=== PATIENT | male | born 1960 | race Caucasian/White ===

== ENCOUNTER → 2019-04-06 08:06 | Outpatient (CLI) | payer BC | END | disposition home or self-care (01) | LOC: D.MRI 08:06 | PROVIDERS: ATTEND Orthopaedic Surgery | DX: S83.232A Complex tear of medial meniscus, current injury, left knee, initial encounter (principal) ==

== ENCOUNTER 2019-04-29 08:30 | Day surgery (SDC) | payer BC ==
[2019-04-28 15:08] LABS: HEMATOCRIT 42.3 % (42.0-54.0); HEMOGLOBIN 15.8 g/dL (13.5-17.5); MCH 30.7 pg (26.0-34.0); MCHC 37.4 g/dL (31.0-37.0); MCV 82.1 fL (80.0-100.0); MEAN PLATELET VOLUME 10.3 fL (7.4-10.4); PLATELET COUNT 88 10x3/uL (130-400); RBC 5.15 10x6/uL (4.20-6.10); RDW 12.9 % (11.5-14.5); WBC 6.2 10x3/uL (4.8-10.8)
[2019-04-28 17:32] LABS: PLATELET ESTIMATE DECREASED
[~2019-04-29] VITALS: Ht 193 cm; Wt 138.3 kg
[~2019-04-29 08:30] MED LIST: LISINOPRIL20 MG PO
[2019-04-29 08:57] VITALS: BP 140/80; Ht 193 cm; Wt 138.3 kg
[2019-04-29] MEDS ORDERED: HYDROCODON-ACE1 EA10 PO (12:26)
--- NOTE | 2019-04-30 15:25 | OP ---
PATIENT NAME: MELINDA ALICEA MEDICAL RECORD: [id number] :64 LOCATION:D.OPS ADMISSION DATE: SURGEON: LIBRA MARQUEZ MD DATE OF OPERATION: 04/29/2019 PREOPERATIVE DIAGNOSIS: Lateral meniscus tear. POSTOPERATIVE DIAGNOSES: Lateral meniscus tear and medial meniscus tear of the left knee. PROCEDURES: 1. Arthroscopic partial lateral meniscectomy of the left knee. 2. Arthroscopic partial medial meniscectomy of the left knee. SURGEON: Libra Marquez MD ANESTHESIA: General. INTRAOPERATIVE COMPLICATIONS: None. SUMMARY OF PATHOLOGIC FINDINGS: The patient had a small tear of the lateral meniscus just at the root; however, the root was intact. The tear did have a fragment associated with it, but no chondromalacia was noted on the medial side; however, the patient had an undersurface tear of the medial meniscus resulting in displacement of the medial meniscus on testing with the arthroscopic probe. OPERATIVE SUMMARY IN DETAIL: After obtaining the appropriate preoperative orthopedic surgery consent as well as anesthetic consultation, evaluation and clearance, the patient was brought to the operating room and placed on the operating table in supine position. After adequate general laryngeal mask airway was administered, tourniquet was placed about the proximal aspect of the left lower extremity. Left lower extremity was then prepped and draped in routine sterile fashion. At this point, the appropriate preoperative timeout was taken including the appropriate operative site, medications, antibiotics, and allergies. This was agreed upon by all in the operative suite. The leg was elevated and exsanguinated, tourniquet was inflated to 350 mmHg. Routine inferolateral portal was established followed by superomedial portal and inferomedial portal. Diagnostic arthroscopy did reveal the above findings. Attention was first turned to the lateral meniscus tear. With the leg in a [id number] position, gentle debridement of the torn area of meniscus was done using the resector. The lateral compartment was excellent overall condition without chondromalacia. Next, attention was turned to the medial meniscus. After appropriate probing, it was found that the patient did have an undersurface tear of the medial meniscus communicating with the articular surface. An arthroscopic resector in conjunction with meniscotome was utilized to debride the medial meniscus back to stable meniscal elements. Having completed this, the knee was insufflated with 30 cc of 0.25% Marcaine with epinephrine and 40 mg of Depo-Medrol. Arthroscopy portals were closed in routine interrupted fashion using 4-0 Prolene. Sterile dressings were applied. The tourniquet was deflated. The patient was awakened and taken to recovery room in stable condition. All final needle and sponge counts were correct. TRANSINT:[id number] Voice Confirmation ID: [id number] DOCUMENT ID: [id number] OPERATIVE REPORT [id number] MELINDA ALICEA MD, LIBRA GRAMAJO at 1525 CC: [id number] DICTATION DATE: 04/30/19 1045 ADULT REMEDIAL EDUCATION INSTRUCTOR: 04/30/19 1130 [facility] 04/29/19 [address] [place] [address]
== END 2019-04-29 14:35 | disposition home or self-care (01) ==
LOC: D.OPS 08:30 → D.PAN 12:45 → D.OPS 12:45
PROVIDERS: Anesthesiology; ATTEND Orthopaedic Surgery
DX: S83.242A Other tear of medial meniscus, current injury, left knee, initial encounter (principal); S83.282A Other tear of lateral meniscus, current injury, left knee, initial encounter; Z01.812 Encounter for preprocedural laboratory examination

== ENCOUNTER → 2021-02-02 11:55 | Outpatient (CLI) | payer BC ==
[2019-04-29 08:57] VITALS: BMI 37.2
[~2021-02-02 11:55] MED LIST changes: +HYDROCODON-ACE1 EA10 PO
== END | disposition home or self-care (01) ==
LOC: D.US 11:30
PROVIDERS: ATTEND Family Medicine
DX: R60.0 Localized edema (principal); R06.02 Shortness of breath